=== PATIENT | female | born 1990 | race Caucasian/White ===

== ENCOUNTER 2024-07-07 01:55 | Emergency (ER) | payer MEDICARE, MEDICAID, SELFPAY ==
[2024-07-07 02:00] VITALS: BP 126/94; PULSE 69; RESP 16; TEMP 36.1; O2SAT 98; BMI 34.2
--- NOTE | 2024-07-07 02:18 | EX.ED.DYSGE1 ---
HPI History of Present Illness Chief Complaint: Other, Pain/Inj Informant: EMS Narrative Narrative: EMS brings this patient from a long-term for a broken PEG tube at 2 AM Sunday morning. 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 They sent her here to get it replaced. Apparently this long-term is in [place], and the long-term stated that they called the hospital in [place] first but someone there said that they did not have the right devices nor anyone to put them in. ROS ROS ED Review of Systems ROS Unobtainable: due to encephalopathy and due to mental condition EXAM Physical Exam Const Vital Signs: 07/07/24 02:00 Temperature 97 F L Temperature Source Temporal Pulse Rate 69 Respiratory Rate 16 Blood Pressure 126/94 H Blood Pressure Mean 104 Pulse Ox 98 GI normal to inspection, nondistended, normoactive bowel sounds GI Narrative: PEG site is benign without discharge or signs of inflammation/infection. The tract appears well-established. There is a 16 [place] PEG tube within the tract, it is broken at the distal end of it and leaking if the clip is removed. Neuro Neuro Narrative: Eyes open, mute, does not follow commands Skin no rashes or lesions noted and no wounds MDM MDM MDM Narrative Medical decision making narrative: Feeding tube was replaced to the procedure note. The smallest that we had available was 20 [place]. Her site appeared to be fairly good-sized, and although she only had a 16, I tried it and it went in with very little resistance and drained stomach contents nonbloody. Therefore I feel since this tract is well-established that a confirmatory x-ray is not necessary. She will be discharged back to the long-term. Procedures Other Procedures Procedure(s): Gastrostomy-tube replacement: Deflated the current tube's balloon which was supposed to hold 6 cc of water but only contained 2 cc, and gently removed the tube without any resistance or problem/pain. Immediately replaced with a 20 [place] gastrostomy tube with a 20 cc balloon which was filled with 20 cc of sterile saline, and secured using the attached hub gently with a piece of gauze between it and the skin at approximately 6 cm. There was a very slight amount of resistance as it was inserted, and a very small amount of blood around the outside of the tube, and subsequently the feeding port of the tube started draining nonbloody stomach contents. Tolerated well with no complications. Discharge Plan Triage Chief Complaint: Other, Pain/Inj ED Provider: Erwin Hurtado Dx/Rx/DC Orders Clinical Impression: Gastrostomy tube dysfunction Instructions: Gastrostomy Feeding Tube Care ... Primary Care Provider: Carlton Goodson Referrals: Carlton Goodson MD [Primary Care Provider] - Print Language: [place] Disposition Disposition: Home, Self Care
[2024-07-07 02:44] VITALS: BP 132/81; PULSE 88; RESP 16; TEMP 36.3; O2SAT 98
== END 2024-07-07 04:57 | disposition home or self-care (01) ==
PROVIDERS: Emergency Provider Emergency Medicine; PCP Family Medicine; Visit Provider Emergency Medicine
DX: K94.29 Other complications of gastrostomy (principal)
CPT/HCPCS: 43762; 99284; A4216